=== PATIENT | female | born 1965 | race Caucasian/White ===

== ENCOUNTER 2017-09-18 15:55 | Emergency (ER) | payer OTHER ==
[2017-09-18 16:17] VITALS: PULSE 72; O2SAT 98
[2017-09-18 17:56] VITALS: BP 134/85
--- NOTE | 2017-09-18 18:09 | ERPHSYRPT ---
- History of Present Illness Time Seen by Provider: 09/18/17 17:40 Source: patient Exam Limitations: no limitations Patient Subjective Stated Complaint: Pt states "I was folding laundry last night and my left foot rolled up under and my ankle hurts. Triage Nursing Assessment: Pt alert and oriented X 3, skin pwd Pt ambualates with a slight limp. Pt has slight swelling noted to lateral left ankle. CSM X 4 Physician History: 52-year-old white female arrives with complaint of pain in her left ankle symptoms since yesterday patient states she turned her foot underneath her. Patient states she is on meloxicam. Past medical history includes COPD, arthritis, anxiety, depression, chronic neck pain, skin cancer. Past surgical history includes hernia, skin cancer removed, hysterectomy Method of Injury: twisted Occurred: yesterday Severity of Pain-Max: moderate (monitor) Severity of Pain-Current: mild (left ankle) Lower Extremities Pain: ankle: left Modifying Factors: Improves With: movement, other (walking) Associated Symptoms: none Allergies/Adverse Reactions: iodine Allergy (Severe, Verified 09/18/17 16:16) Rash Home Medications: Fluoxetine HCl [Prozac] 20 mg PO DAILY 09/18/17 [History] Fluticasone/Vilanterol [Breo Ellipta 100-25 Mcg INH] 1 each IH DAILY 09/18/17 [ History] Meloxicam [Mobic] 15 mg PO DAILY 09/18/17 [History] clonazePAM [Klonopin] 2 mg PO DAILY 09/18/17 [History] Hx Tetanus, Diphtheria Vaccination/Date Given: Yes Hx Influenza Vaccination/Date Given: Yes Hx Pneumococcal Vaccination/Date Given: Yes Immunizations Up to Date: Yes - Review of Systems Constitutional: No Fever, No Chills Eyes: No Symptoms Ears, Nose, & Throat: No Symptoms Respiratory: No Cough, No Dyspnea Cardiac: No Chest Pain, No Edema, No Syncope Abdominal/Gastrointestinal: No Abdominal Pain, No Nausea, No Vomiting, No Diarrhea Genitourinary Symptoms: No Dysuria Neurological: Other (left ankle and proximal foot pain laterally) Psychological: No Symptoms Endocrine: No Symptoms All Other Systems: Reviewed and Negative - Past Medical History Pertinent Past Medical History: Yes Neurological History: No Pertinent History ENT History: No Pertinent History Respiratory History: COPD Endocrine Medical History: No Pertinent History Musculoskeletal History: Arthritis Psycho-Social History: Anxiety, Depression Other Medical History: skin cancer. chronic back - Past Surgical History Past Surgical History: Yes Other Surgical History: hernia surgery. skin cancer removed - Social History Smoking Status: Current every day smoker How long have you smoked: years Exposure to second hand smoke: Yes Drug Use: none Patient Lives Alone: No - Female History Hx Last Menstrual Period: hysterectomy Hx Now: No - Nursing Vital Signs Nursing Vital Signs: Initial Vital Signs Temperature 98.7 F 09/18/17 16:11 Pulse Rate 72 09/18/17 16:11 Respiratory Rate 16 09/18/17 16:11 Blood Pressure 146/83 09/18/17 16:11 O2 Sat by Pulse Oximetry 98 09/18/17 16:11 Pain Scale Pain Intensity 6 - Physical Exam General Appearance: alert Eyes, Ears, Nose, Throat Exam: moist mucous membranes Neck Exam: normal inspection Cardiovascular/Respiratory Exam: chest non-tender, normal breath sounds, regular rate/rhythm, no respiratory distress Gastrointestinal/Abdominal Exam: non-tender, guarding Back Exam: normal inspection, No vertebral tenderness Hips Exam: bilateral: non-tender, normal inspection, normal range of motion, no evidence of injury Legs Exam: bilateral leg: non-tender, normal inspection, normal range of motion , no evidence of injury Knees Exam: bilateral knee: non-tender, normal inspection, normal range of motion, no evidence of injury Ankle Exam: right ankle: non-tender, normal inspection, left ankle: bone tenderness (pain with palpation left lateral ankle at lateral malleolus and proximal left foot), bilateral ankle: normal range of motion Foot Exam: right foot: non-tender, normal inspection, left foot: bone tenderness (tender laterally proximal left foot), bilateral foot: normal range of motion Neuro/Tendon Exam: normal sensation, normal motor functions Mental Status Exam: alert, oriented x 3, cooperative Skin Exam: normal color, warm, dry SpO2 Interpretation: normal (98%) SpO2: 98 Oxygen Delivery: Room Air - Course Nursing assessment & vital signs reviewed: Yes - Radiology Exams Left Ankle X-ray Interpretation: Interpreted by me, Negative, No Fracture, No Subluxation Ordered Tests: Active Orders 24 hr Category Date Time Status Salbador Bandage Application -[facility] STAT Care 09/18/17 18:10 Active Splint STAT Care 09/18/17 18:10 Active ANKLE (3 VIEWS) Stat Exams 09/18/17 17:47 Taken FOOT (2 VIEWS) Stat Exams 09/18/17 17:47 Taken - Progress Progress: improved Progress Note: 09/18/17 18:07 This is a 52-year-old white female who arrives with complaint of pain in her left ankle and proximal left lateral foot since yesterday she states she twisted her foot. Patient has a history of chronic back pain and arthritis. She states she is on meloxicam. She is not on any narcotic analgesia. Inspect is reviewed I do not find the patient. Will go ahead and have nurses place Salbador wrap and postop shoe. Will write for a limited dose of Trosper. - Departure Time of Disposition: 18:08 Departure Disposition: Home Clinical Impression: Left foot pain Left ankle sprain Qualifiers: Encounter type: initial encounter Involved ligament of ankle: unspecified ligament Qualified Code(s): S93.402A - Sprain of unspecified ligament of left ankle, initial encounter Condition: Fair Critical Care Time: No Referrals: LEV BERRIOS MD [Primary Care Provider] - Additional Instructions: Return home. Ice and elevate left foot 24-48 hours. Continue your meloxicam as prescribed by your family doctor. Trosper 5/325 #10 one orally every 4-6 hours as needed for pain. Follow-up with your family Dr. symptoms are worse, no better in 48 hours or persist longer than one week. Return for acute distress or for severe symptoms. Your x-rays have been preliminarily read they will be reread tomorrow you will be contacted if any discrepancies are noted. Prescriptions: Hydrocodone/Acetaminophen [Trosper 5-325 Tablet] 1 tab PO Q4-6HPRN PRN #10 tablet MDD 6 tablets PRN Reason: Pain
--- NOTE | 2017-09-19 08:37 | XRAY ---
Indication: Pain following injury. Comparison: None 3 views of the left ankle demonstrates minimal soft tissue swelling, tiny posterior heel spur, and anterior lower leg soft tissue calcified granulomas. No other bony, articular, or soft tissue abnormalities.
--- NOTE | 2017-09-19 08:37 | XRAY ---
Indication: Pain following injury. Comparison: None 2 nonweightbearing views of the left foot demonstrates moderate 1st MTP bunion deformity, talonavicular accessory ossicle, and tiny posterior heel spur. No other bony, articular, or soft tissue abnormalities.
== END 2017-09-18 18:27 | disposition home or self-care (01) ==
LOC: ED 15:55
DX: M25.572 Pain in left ankle and joints of left foot (principal); S93.402A Sprain of unspecified ligament of left ankle, initial encounter; Z79.899 Other long term (current) drug therapy; X50.1XXA Overexertion from prolonged static or awkward postures, initial encounter; Y93.E2 Activity, laundry; Y92.009 Unspecified place in unspecified non-institutional (private) residence as the place of occurrence of the external cause
CPT/HCPCS: 73610; 73620; 99284

== ENCOUNTER 2020-11-25 18:26 | Emergency (ER) | payer OTHER ==
[2020-11-25] MEDS ORDERED: TORAdol 30 mg Injection IM ONE (19:00)
--- NOTE | 2020-11-25 19:08 | ERPHSYRPT ---
<AYO RUBI - Last Filed: 11/25/20 19:40> - History of Present Illness Time Seen by Provider: 11/25/20 18:50 Historian: patient Exam Limitations: no limitations Patient Subjective Stated Complaint: L side rib pain Triage Nursing Assessment: pt to ED c/o L sided rib pain onset yesterday after fall. pt tripped in a hole and hit L side trunk on a support beam in her home. pt rates 10/10 pain which is causing her SOB, pain worse with deep breathing. hx COPD but does not appear in resp distress at this time Physician History: Patient is a 55-year-old white female who presents with a complaint of left rib pain. She stepped in a hole at a construction site fell hitting her lateral chest she has pain in the left lateral ribs worse with a deep breath work with cough. Timing/Duration: yesterday Activities at Onset: other (Walking) Quality: stabbing Location: other (Lateral chest wall) Severity of Pain-Max: moderate Severity of Pain-Current: moderate Modifying Factors: Improves With: breathing, coughing, change in position Associated Symptoms: cough, hurts to breathe Prior Chest Pain/Cardiac Workup: non-cardiac Nitro Today/Relief: no nitro taken today Aspirin Treatment Today: no aspirin today Allergies/Adverse Reactions: iodine Allergy (Severe, Verified 11/25/20 18:49) Rash Home Medications: Fluoxetine HCl [Prozac] 20 mg PO DAILY 09/18/17 [History] Fluticasone/Vilanterol [Breo Ellipta 100-25 Mcg INH] 1 each IH DAILY 09/18/17 [History] clonazePAM [Klonopin] 2 mg PO DAILY 09/18/17 [History] Eluxadoline [Viberzi] 100 mg PO DAILY 11/25/20 [History] Mirtazapine 30 mg [Remeron 30 mg] 30 mg PO DAILY 11/25/20 [History] Hx Tetanus, Diphtheria Vaccination/Date Given: Yes Hx Influenza Vaccination/Date Given: Yes Hx Pneumococcal Vaccination/Date Given: Yes Immunizations Up to Date: Yes Travel Risk - International Travel Have you traveled outside of the country in past 3 weeks: No - Coronavirus Screening Are you exhibiting any of the following symptoms?: No Close contact with a COVID-19 positive Pt in past 14-21 Days: No - Vaccine Status Have you recieved a Covid-19 vaccination: Yes [employer]: Moderna - Vaccination Dates Date of 2cond Vaccination (if applicable): 11/18/20 - Review of Systems Constitutional: No Fever, No Chills Eyes: No Symptoms Ears, Nose, & Throat: No Symptoms Respiratory: Cough, Dyspnea Cardiac: No Chest Pain, No Edema, No Syncope Abdominal/Gastrointestinal: No Abdominal Pain, No Nausea, No Vomiting, No Diarrhea Genitourinary Symptoms: No Dysuria Musculoskeletal: No Back Pain, No Neck Pain Skin: No Rash Neurological: No Dizziness, No Focal Weakness, No Sensory Changes Psychological: No Symptoms Endocrine: No Symptoms All Other Systems: Reviewed and Negative - Past Medical History Pertinent Past Medical History: Yes Neurological History: Migraines, Peripheral Neuropathy ENT History: No Pertinent History Cardiac History: No Pertinent History Respiratory History: Asthma, COPD Endocrine Medical History: No Pertinent History Musculoskeletal History: Degenerative Disk Disease, Other GI Medical History: Hernia Psycho-Social History: Anxiety, Depression Other Medical History: skin cancer. chronic back. scoliosis - Past Surgical History Past Surgical History: Yes Female Surgical History: Hysterectomy, Tubal Ligation Other Surgical History: hernia surgery. skin cancer removed - Social History Smoking Status: Current every day smoker How long have you smoked: years Exposure to second hand smoke: Yes Drug Use: none Patient Lives Alone: No - Female History Hx Now: No - Physical Exam General Appearance: moderate distress Eye Exam: PERRL/EOMI, eyes nml inspection Ears, Nose, Throat Exam: normal ENT inspection, moist mucous membranes Neck Exam: normal inspection, non-tender, supple, full range of motion Respiratory Exam: chest tenderness, respiratory distress, rhonchi, stridor Cardiovascular Exam: regular rate/rhythm, normal heart sounds Gastrointestinal/Abdomen Exam: soft, No tenderness, No mass Back Exam: normal inspection, No CVA tenderness, No vertebral tenderness Extremity Exam: normal inspection, normal range of motion Neurologic Exam: alert, oriented x 3, cooperative, normal mood/affect, sensation nml, No motor deficits Skin Exam: normal color, warm, dry SpO2 Interpretation: normal SpO2: 98 O2 Delivery: Room Air - Departure Clinical Impression: Contusion of rib on left side Condition: Stable Referrals: LEV BERRIOS MD [Primary Care Provider] - Additional Instructions: Take all your medication as prescribed. Follow-up with your primary care physician for persistent symptoms. Prescriptions: Hydrocodone/APAP 5/325 [[place] 5/325 mg] 1 each PO Q8H PRN PRN #6 tablet MDD 3 PRN Reason: Pain <HODAERICA Robert - Last Filed: 11/25/20 20:46> - Nursing Vital Signs Nursing Vital Signs: Initial Vital Signs Temperature 98.2 F 11/25/20 18:40 Pulse Rate 61 11/25/20 18:40 Respiratory Rate 21 11/25/20 18:40 Blood Pressure 144/87 11/25/20 18:40 O2 Sat by Pulse Oximetry 98 11/25/20 18:40 Pain Scale Pain Intensity 6 - Course Nursing assessment & vital signs reviewed: Yes Ordered Tests: Active Orders 24 hr Category Date Time Status CHEST 2 VIEWS (PA AND LAT) Stat Exams 11/25/20 20:31 Taken RIBS UNILATERAL Stat Exams 11/25/20 20:32 Taken Medication Summary Discontinued Medications Generic Name Dose Route Start Last Admin Trade Name Freq PRN Reason Stop Dose Admin Ketorolac Tromethamine 60 mg 11/25/20 19:00 11/25/20 19:11 Toradol 30 Mg Injection IM 11/25/20 19:01 60 mg STAT ONE Administration Ketorolac Tromethamine Confirm 11/25/20 19:10 Toradol 30 Mg Injection Administered 11/25/20 19:11 Dose 60 mg .ROUTE .STK-MED ONE - Progress Progress: re-examined, unchanged Air Movement: good Progress Note: 11/25/20 20:44 Left rib x-rays show no evidence of any acute fracture or acute cardiopulmonary process. Blood Culture(s) Obtained: No Antibiotics given: No Counseled pt/family regarding: diagnosis, need for follow-up, rad results - Departure Departure Disposition: Home Critical Care Time: No
[2020-11-25] MEDS ORDERED: TORAdol 30 mg Injection ONE (19:10)
[2020-11-25] MEDS ORDERED: NORCO 5/325 MG PO ONE (20:46)
[2020-11-25] MEDS ORDERED: NORCO 5/325 MG ONE (20:49)
[2020-11-25 21:12] VITALS: BP 116/70; PULSE 81; O2SAT 96
--- NOTE | 2020-11-25 21:14 | XRAY ---
Indication: Pain following fall. Comparison: None 2 view left ribs demonstrates nondisplaced anterolateral 9th rib fracture without pneumothorax/pneumothorax. Incidental osteopenia, tiny left mid lung calcified granuloma, tiny right hilar calcified nodes, and moderate levorotoscoliosis centered at L2. No other bony, articular, or soft tissue abdomen abnormalities. Comment: Fracture not reported by interpreting ER clinician. Telephone report given to Dr. Pagan at 2110 hrs. on November 25, 2020.
--- NOTE | 2020-11-25 21:16 | XRAY ---
Indication: Left rib pain following fall. Comparison: December 19, 2017. PA/lateral chest clear with again COPD. Heart not enlarged. Bony thorax demonstrates new left 9th rib fracture reported separately. Stable osteopenia and scoliosis.
== END 2020-11-25 21:10 | disposition home or self-care (01) ==
LOC: ED 18:26
DX: S22.32XA Fracture of one rib, left side, initial encounter for closed fracture (principal); R07.81 Pleurodynia; W01.198A Fall on same level from slipping, tripping and stumbling with subsequent striking against other object, initial encounter; Y93.89 Activity, other specified; Y92.008 Other place in unspecified non-institutional (private) residence as the place of occurrence of the external cause
CPT/HCPCS: 71046; 71100; 96372; 99283; J1885; A9270-GY

== ENCOUNTER 2021-11-16 22:58 | Emergency (ER) | payer OTHER ==
[2021-11-16 23:28] VITALS: BP 137/80; PULSE 67; O2SAT 97
[2021-11-16] MEDS ORDERED: XYLOCAINE 1% HCL 20 ML MDV ONE (23:31)
[2021-11-16] MEDS ORDERED: Adacel Vial IM ONE ×2 (23:48→23:50)
[2021-11-16] MEDS ORDERED: XYLOCAINE 1% HCL 20 ML MDV IJ ONE (23:53)
--- NOTE | 2021-11-16 23:54 | ERPHSYRPT ---
- History of Present Illness Time Seen by Provider: 11/16/21 23:07 Source: patient Exam Limitations: no limitations Patient Subjective Stated Complaint: pt states "I was moving a freezer and the metal cut me." Triage Nursing Assessment: pt ambulated into the er; pt is axo x4; c/o laceration to left hand; pt states 7/10 pain to left hand; laceration present to left index and left middle finger; left middle finger laceration measures 2 cm and left index finger measures 1.5 cm; minimal amount of blood present to left index finder; middle left finger is reinforced; vitals wnl Physician History: 56-year-old female presented in the ER with chief complaint of laceration left index and third digit while she was pulling her refrigerator and sharp metal object cut her fingers. There was bleeding initially but stopped with applying pressure. She is complaining of moderate to severe sharp pain with movements. No numbness or tingling in the fingertips. Unsure about tetanus status. Timing/Duration: hour(s) (0.5), sudden, worse Quality: painful Severity: moderate Location: extremities Possible Causes: no cause identified Associated Symptoms: swelling/mass/lumps Allergies/Adverse Reactions: iodine Allergy (Severe, Verified 11/16/21 23:18) Rash Home Medications: Fluoxetine HCl [Prozac] 20 mg PO DAILY 09/18/17 [History] Fluticasone/Vilanterol [Breo Ellipta 100-25 Mcg INH] 1 each IH DAILY 09/18/17 [History] clonazePAM [Klonopin] 2 mg PO DAILY 09/18/17 [History] Eluxadoline [Viberzi] 100 mg PO DAILY 11/25/20 [History] Mirtazapine 30 mg [Remeron 30 mg] 30 mg PO DAILY 11/25/20 [History] Hx Tetanus, Diphtheria Vaccination/Date Given: No (unknown) Hx Influenza Vaccination/Date Given: Yes Hx Pneumococcal Vaccination/Date Given: Yes Travel Risk - International Travel Have you traveled outside of the country in past 3 weeks: No - Coronavirus Screening Are you exhibiting any of the following symptoms?: No Close contact with a COVID-19 positive Pt in past 14-21 Days: No - Vaccine Status Have you recieved a Covid-19 vaccination: Yes [employer]el [employer]: Moderna - Vaccination Dates Date of 2cond Vaccination (if applicable): 11/18/20 - Review of Systems Constitutional: No Symptoms Ears, Nose, & Throat: No Symptoms Respiratory: No Symptoms Cardiac: No Symptoms Abdominal/Gastrointestinal: No Symptoms Genitourinary Symptoms: No Symptoms Musculoskeletal: Injury Skin: Skin Lesions Neurological: No Symptoms Psychological: No Symptoms Endocrine: No Symptoms Hematologic/Lymphatic: No Symptoms Immunological/Allergic: No Symptoms - Past Medical History Pertinent Past Medical History: Yes Neurological History: Migraines, Peripheral Neuropathy ENT History: No Pertinent History Cardiac History: No Pertinent History Respiratory History: Asthma, COPD Endocrine Medical History: No Pertinent History Musculoskeletal History: Degenerative Disk Disease, Other GI Medical History: Hernia Psycho-Social History: Anxiety, Depression Other Medical History: skin cancer. chronic back. scoliosis - Past Surgical History Past Surgical History: Yes Female Surgical History: Hysterectomy, Tubal Ligation Other Surgical History: hernia surgery. skin cancer removed - Social History Smoking Status: Current every day smoker How long have you smoked: years Exposure to second hand smoke: Yes Drug Use: none Patient Lives Alone: No - Nursing Vital Signs Nursing Vital Signs: Initial Vital Signs Temperature 97.9 F 11/16/21 23:19 Pulse Rate 67 11/16/21 23:19 Respiratory Rate 18 11/16/21 23:19 Blood Pressure 137/80 11/16/21 23:19 O2 Sat by Pulse Oximetry 97 11/16/21 23:19 Pain Scale Pain Intensity 7 - Physical Exam General Appearance: no apparent distress Eye Exam: PERRL/EOMI Ears, Nose, Throat Exam: normal ENT inspection Neck Exam: normal inspection, full range of motion Respiratory Exam: normal breath sounds, lungs clear Cardiovascular Exam: regular rate/rhythm, normal heart sounds Extremity Exam: lacerations (2 cm superficial laceration left distal pulp superficial with no active bleeding or spurting. Left middle finger at distal interphalangeal joint area 1.5 cm laceration with slow oozing. Intact range of motion.), tenderness Neurologic Exam: alert, oriented x 3, cooperative Skin Exam: normal color SpO2 Interpretation: normal SpO2: 97 O2 Delivery: Room Air Procedures - Laceration/Wound Repair Left Finger Time of Procedure: 23:54 Wound Location: Left Wound Length (cm): 1.5 Wound's Depth, Shape: irregular, flap Wound Explored: clean Irrigated: Yes Hibiclens Prep: Yes Anesthesia: 1% Lidocaine Volume Anesthetic (ccs): 4 Wound Repaired With: sutures Suture Size/Type: 4-0, prolene Number of Sutures: 4 Type of Splint Applied: Aluminum splint Progress: 11/16/21 23:55 Laceration left index finger. Size 2 cm. Dermabond/Steri-Strips applied. Ordered Tests: Medication Summary Generic Name Dose Route Start Last Admin Trade Name Freq PRN Reason Stop Dose Admin Diphtheria/Tetanus/Acell Pertussis 0.5 ml 11/16/21 23:48 Tdap --Diph,Pertuss(Acell),Tet Vac/Pf 0.5 Ml Vial IM 11/16/21 23:49 .ONCE ONE Discontinued Medications Generic Name Dose Route Start Last Admin Trade Name Freq PRN Reason Stop Dose Admin Lidocaine HCl Confirm 11/16/21 23:31 Lidocaine Hcl 1% 20 Ml Mdv 20 Ml Ml Administered 11/16/21 23:32 Dose 1 ml .ROUTE .STK-MED ONE - Progress Progress: improved Progress Note: 11/16/21 23:55 Laceration is repaired. Recommended symptomatic treatment and outpatient follow-up. It was a clean wound, do not think needs antibiotics. Counseled pt/family regarding: diagnosis, need for follow-up - Departure Departure Disposition: Home Clinical Impression: Finger laceration Condition: Stable Critical Care Time: No Referrals: LEV BERRIOS MD [Primary Care Provider] - Follow Up with PCP/3 days Instructions: Laceration Repair With Glue (DC), Laceration Repair With Stitches (DC) Additional Instructions: Take Tylenol/Mobic as needed for pain. Follow-up with primary care for reevaluation. Avoid exertional activity with left hand. Suture removal in 10 to 12 days. Return to ER for increasing swelling pain, discharge, fever chills etc.
== END 2021-11-17 00:09 | disposition home or self-care (01) ==
LOC: ED 22:58
DX: S61.211A Laceration without foreign body of left index finger without damage to nail, initial encounter (principal); S61.213A Laceration without foreign body of left middle finger without damage to nail, initial encounter; W26.8XXA Contact with other sharp object(s), not elsewhere classified, initial encounter; M79.645 Pain in left finger(s); J44.9 Chronic obstructive pulmonary disease, unspecified; Z72.0 Tobacco use; Z79.899 Other long term (current) drug therapy
CPT/HCPCS: 12002; 90471; 90715; 96372; 99283